=== PATIENT | male | born 1960 | race Caucasian/White ===

== ENCOUNTER 2017-11-01 15:10 | Outpatient (CLI) | payer BC ==
--- NOTE | 2017-11-01 16:10 | RAD ---
LUMBAR SPINE 4 VIEWS: Date: 11/01/17 HISTORY: Low back pain. FINDINGS: Five lumbar-type vertebrae. Pedicles are intact. Minimal leftward convex curvature of the lower lumba r spine. Vertebral body heights are maintained. At the L2-3 level, there is disc space narrowing and minimal degenerative retrolisthesis. Minimal degenerative retrolisthesis at the L1-2 and L3-4 levels also. No abnormal translational motion upon flexion or extension. Anterior fixation screws are in kris ce at the L4-5 and L5-S1 levels. IMPRESSION: Postoperative and mild degenerative changes lumbar spine. No acute osseous abnormalities are demonstr ated. POS: [facility]
== END 2017-11-01 15:11 | disposition home or self-care (01) ==
LOC: SCSRAD 15:10
PROVIDERS: ATTEND Psychiatry & Neurology Neurology
DX: M54.30 Sciatica, unspecified side (principal); M47.896 Other spondylosis, lumbar region; Z98.890 Other specified postprocedural states
CPT/HCPCS: 72110